=== PATIENT | male | born 1950 | race African-American/Black ===

== ENCOUNTER 2018-04-26 16:12 | Emergency (ER) | payer MEDICARE, MEDICAID ==
[2018-04-26] MEDS ORDERED: Acetaminophen 500 MG TAB ONE (17:00)
[2018-04-26] MEDS ORDERED: Acetaminophen 325 MG TAB ONE (17:24)
--- NOTE | 2018-04-26 17:25 | CT ---
CT HEAD WITHOUT CONTRAST: 04/26/18 Multiple axial tomograms obtained through the head without IV enhancement. INDICATIONS: Injury. Fall with injury to head. Comparison made to a CT head 07/16/2004. Ventriculomegaly is present. Ventriculomegaly was also present on the prior exam and does not show si gnificant change. The degree of ventriculomegaly appears slightly disproportionate to the atrophy pre sent which raises the possibility of NPH. There is no evidence of intracranial hemorrhage. No evidence of acute infarct or mass. Mucosal thickening in the paranasal sinuses is noted. Diffuse paranasal sinus mucosal opacification w as present on the prior exam. IMPRESSION: 1. No acute process or significant interval change. 2. There is mild ventriculomegaly as discussed above. POS: [facility]
--- NOTE | 2018-04-26 17:45 | RAD ---
RIGHT WRIST: 04/26/18 Three views. HISTORY: Fall with injury to right wrist. Carpals appear normally aligned. No evidence of fracture identified. There is narrowing of the radiocarpal joint and there appears to be some calcification of the triangu lar fibrocartilage indicating chronic change. IMPRESSION: No acute fracture identified. POS: [facility]
--- NOTE | 2018-04-26 17:47 | CT ---
CT CERVICAL SPINE: 04/26/18 Multiple axial tomograms obtained through the cervical spine with multiplanar reconstruction. INDICATIONS: Fall with injury to neck. Cervical vertebrae maintain normal height and alignment. Moderate to severe degenerative changes are noted. Hypertrophic changes are seen throughout the cervical spine. IMPRESSION: Degenerative changes of the cervical spine. No acute fracture identified. POS: [facility]
[2018-04-26] MEDS ORDERED: Bacitracin Zinc 1 Packet ONE (17:56)
== END 2018-04-26 18:14 | disposition home or self-care (01) ==
LOC: ERS 16:12
DX: S60.211A Contusion of right wrist, initial encounter (principal); S00.511A Abrasion of lip, initial encounter; S00.31XA Abrasion of nose, initial encounter; I10 Essential (primary) hypertension; W18.30XA Fall on same level, unspecified, initial encounter
CPT/HCPCS: 70450; 72125

== ENCOUNTER 2019-06-27 12:21 | Outpatient (CLI) | payer MEDICARE, MEDICAID ==
--- NOTE | 2019-06-27 12:57 | RAD ---
RADIOGRAPH CHEST 2 VIEW: DATE: 06/27/2019 TIME: 12:50 PM HISTORY: 69-year-old male with asthma and dyspnea. COMPARISON: 07/18/2004 FINDINGS: Images are degraded by patient breathing motion, especially lateral view. Patient unable to follow br eath-hold instructions. No finding of cardiomegaly. New finding of prominence of pulmonary vasculature. Prominent interstitial markings. Questionable tiny bilateral pleural effusions. No conso lidation or pneumothorax. IMPRESSION: Cardiomegaly and pulmonary venous congestion.
== END 2019-06-27 12:22 | disposition home or self-care (01) ==
LOC: BICRAD 12:21
PROVIDERS: ATTEND Family Medicine
DX: J45.909 Unspecified asthma, uncomplicated (principal); I51.7 Cardiomegaly; I87.8 Other specified disorders of veins
CPT/HCPCS: 71046

== ENCOUNTER 2022-06-05 14:08 | Inpatient (IN) | payer MEDICARE, MEDICAID ==
[2022-06-05 17:01] VITALS: BMI 24.5
[2022-06-05] MEDS ORDERED: Acetaminophen 325 MG TAB PO PRN (17:01)
[2022-06-05] MEDS ORDERED: Ondansetron PF 4 MG/2 ML Vial IVP PRN (17:01)
[2022-06-05] MEDS ORDERED: diphenhydrAMINE 25 MG CAP PO PRN (17:21)
[2022-06-05] MEDS ORDERED: Milk Of Magnesia 30 ML UDCUP PO PRN (17:26)
[2022-06-05] MEDS ORDERED: Polyethylene Glycol 3350 17 GM Packet PO PRN (17:26)
[2022-06-05] MEDS ORDERED: Albuterol 200 PUFF (6.7GM INHALER) INH PRN (17:36)
[2022-06-05 19:11] LABS: Troponin I 0.122 ng/mL (< 0.028)
[2022-06-05] MEDS: OXcarbazepine 300 MG TAB PO SCH (20:16)
[2022-06-05] MEDS: Montelukast Sodium 10 mg Tablet PO SCH (20:16)
[2022-06-05] MEDS: Terazosin HCl 5 MG CAP PO SCH (20:16)
[2022-06-05] MEDS: guaiFENesin ER 600 MG TAB PO SCH (20:16)
[2022-06-05] MEDS: Chlorhexidine Gluconate 15 ML UDCUP SSP SCH (20:17)
[2022-06-06 04:21] LABS: #Eosinphils 0.2 thou/uL (0.0-0.7); #Monocytes 0.8 thou/uL (0.11-0.59); #Neutrophils 5.9 thou/uL (1.40-6.50); %Basophils 0.1 % (0.0-1.0); %Eosinophils 2.3 % (0.0-10.0); %Lymphocytes 12.5 % (21.0-51.0); %Neutrophils 75.1 % (42.0-75.0); Hemoglobin 13.1 g/dL (14.0-18.0); Mean Corpuscular HGB CONC 32.2 g/dL (32.0-36.0); Mean Corpuscular Hemoglobin 30.3 pg (27.0-31.0); Mean Corpuscular Volume 94.3 fL (78.0-98.0); Mean Platelet Volume 9.2 fL (7.4-10.4); Platelet Count 149 thou/uL (130-400); Red Blood Cell (RBC) Count 4.33 mill/uL (4.70-6.10); White Blood Cell (WBC) Count 7.9 thou/uL (4.8-10.8)
[2022-06-06 04:33] LABS: Anion Gap 13 mmol/L (10-20); BUN (Urea Nitrogen) 19 mg/dL (8.4-25.7); Calc. Creatinine Clearance 71 mL/min (70-130); Calcium 8.1 mg/dL (7.8-10.44); Carbon Dioxide 27 mmol/L (23-31); Chloride 100 mmol/L (98-107); Estimated GFR 93; Glucose 111 mg/dL (83-110); Potassium 3.7 mmol/L (3.5-5.1); Sodium 136 mmol/L (136-145)
[2022-06-06] MEDS: Furosemide 20 MG/2 ML VIAL SLOW IVP SCH ×2 (05:36→15:47)
[2022-06-06] MEDS ORDERED: Furosemide 40 MG/4 ML VIAL SLOW IVP SCH (06:00)
[2022-06-06] MEDS: guaiFENesin ER 600 MG TAB PO SCH ×2 (09:31→20:56)
[2022-06-06] MEDS: Carvedilol 6.25 MG TAB PO SCH ×2 (09:31→15:48)
[2022-06-06] MEDS: Lisinopril 20 MG TAB PO SCH (09:31)
[2022-06-06] MEDS: Chlorhexidine Gluconate 15 ML UDCUP SSP SCH ×2 (09:32→20:56)
[2022-06-06] MEDS: Fluticasone Propionate Nasal Spray 16 gm Bottle NASAL SCH (09:32)
[2022-06-06] MEDS: Enoxaparin Sodium 40 MG/0.4 ML SYRINGE SC SCH (09:32)
[2022-06-06] MEDS: OXcarbazepine 300 MG TAB PO SCH ×2 (12:16→20:57)
[2022-06-06] MEDS: Terazosin HCl 5 MG CAP PO SCH (20:56)
[2022-06-06] MEDS: Montelukast Sodium 10 mg Tablet PO SCH (20:56)
[2022-06-07 04:51] LABS: Troponin I 0.114 ng/mL (< 0.028)
[2022-06-07] MEDS ORDERED: Furosemide 20 MG TAB PO SCH (09:00)
[2022-06-07] MEDS ORDERED: Azithromycin 250 MG TAB PO SCH (09:00)
[2022-06-07] MEDS: OXcarbazepine 300 MG TAB PO SCH (09:31)
[2022-06-07] MEDS: Enoxaparin Sodium 40 MG/0.4 ML SYRINGE SC SCH (09:31)
[2022-06-07] MEDS: guaiFENesin ER 600 MG TAB PO SCH (09:32)
[2022-06-07] MEDS: Lisinopril 20 MG TAB PO SCH (09:32)
[2022-06-07] MEDS: Fluticasone Propionate Nasal Spray 16 gm Bottle NASAL SCH (09:33)
[2022-06-07] MEDS: Carvedilol 6.25 MG TAB PO SCH (09:33)
[2022-06-07] MEDS: Chlorhexidine Gluconate 15 ML UDCUP SSP SCH (09:37)
[2022-06-07 11:30] VITALS: TEMP 97.5
[2022-06-07 12:45] VITALS: BP 159/75
== END 2022-06-07 13:20 | disposition home or self-care (01) | DRG 280 ==
LOC: 2NO 14:08
PROVIDERS: ADMIT Internal Medicine; ATTEND Internal Medicine
DX: I11.0 Hypertensive heart disease with heart failure (principal); I50.23 Acute on chronic systolic (congestive) heart failure; I21.A1 Myocardial infarction type 2; G40.909 Epilepsy, unspecified, not intractable, without status epilepticus; J45.20 Mild intermittent asthma, uncomplicated; G47.33 Obstructive sleep apnea (adult) (pediatric); Z79.51 Long term (current) use of inhaled steroids; Z79.899 Other long term (current) drug therapy
CPT/HCPCS: 36415; 80048; 84484; 85025; 93798; J1650; J1940

== ENCOUNTER 2022-10-28 16:21 | Inpatient (IN) | payer MEDICARE, MEDICAID ==
[2022-10-28 17:06] VITALS: BMI 18.9
[2022-10-28] MEDS ORDERED: Senokot S 8.6-50 MG TAB PO PRN (17:25)
[2022-10-28] MEDS ORDERED: Acetaminophen 325 MG TAB PO PRN (17:25)
[2022-10-28] MEDS ORDERED: Ipratropium/Albuterol 3 ML NEB NEB PRN (18:13)
[2022-10-28] MEDS ORDERED: FLU VACC QS2022-23(65YR UP)/PF 240 MCG/0.7 ML SYRINGE IM ONE (18:15)
[2022-10-29 05:00] LABS: #Eosinphils 0.3 thou/uL (0.0-0.7); #Lymphocytes 0.9 thou/uL (1.20-3.40); #Monocytes 0.7 thou/uL (0.11-0.59); #Neutrophils 3.7 thou/uL (1.40-6.50); %Basophils 0.1 % (0.0-1.0); %Eosinophils 5.2 % (0.0-10.0); %Lymphocytes 16.3 % (21.0-51.0); %Monocytes 12.5 % (0.0-10.0); Hemoglobin 12.9 g/dL (14.0-18.0); Mean Corpuscular HGB CONC 32.6 g/dL (32.0-36.0); Mean Corpuscular Hemoglobin 32.1 pg (27.0-31.0); Mean Corpuscular Volume 98.4 fl (78.0-98.0); Mean Platelet Volume 9.7 fL (7.4-10.4); Platelet Count 140 10x3/uL (130-400); RBC Distribution Width 13.9 % (11.5-14.5); Red Blood Cell (RBC) Count 4.01 mill/uL (4.70-6.10); White Blood Cell (WBC) Count 5.6 10x3/uL (4.8-10.8)
[2022-10-29 05:27] LABS: Anion Gap 14 mmol/L (10-20); BUN (Urea Nitrogen) 14 mg/dL (8.4-25.7); Calc. Creatinine Clearance 62 mL/min (70-130); Calcium 8.1 mg/dL (7.8-10.44); Carbon Dioxide 24 mmol/L (23-31); Chloride 106 mmol/L (98-107); Estimated GFR 97; Glucose 84 mg/dL (83-110); Potassium 3.6 mmol/L (3.5-5.1); Sodium 140 mmol/L (136-145)
[2022-10-29] MEDS: Furosemide 20 MG/2 ML VIAL SLOW IVP SCH ×2 (06:01→16:20)
[2022-10-29] MEDS: OXcarbazepine 300 MG TAB PO SCH ×2 (10:53→16:20)
[2022-10-29 12:15] LABS: Troponin I 0.124 ng/mL (< 0.028)
[2022-10-29] MEDS ORDERED: Milk Of Magnesia 30 ML UDCUP PO PRN (12:55)
[2022-10-29] MEDS ORDERED: guaiFENesin ER 600 MG TAB PO PRN (12:55)
[2022-10-29] MEDS: cefTRIAXone\\ROCEPHIN 1 GM in Sodium Chloride 0.9% 100 ML IVPB SCH (16:20)
[2022-10-29 17:18] LABS: Bacteria/HPF None Seen HPF (None Seen); Bilirubin Negative (Negative); Blood, Urine Negative (Negative); CAUTI Indications for Culture Alt mental st,lethar; Clarity Clear (Clear); Glucose, Urine (Dipstick) Normal (Negative); Ketone, Urine Negative (Negative); Leukocyte Negative Leu/uL (Negative); Nitrite Negative (Negative); Protein, Urine (Dipstick) Negative (Neg-Trace); RBC/HPF None Seen HPF (0-3); Specific Gravity, Urine 1.015 (1.002-1.036); Squamous Epithelial None Seen HPF (0-3); WBC/HPF 0-3 HPF (0-3)
[2022-10-29 17:20] LABS: Urine Culture Reflex No No
[2022-10-29] MEDS: Terazosin HCl 5 MG CAP PO SCH (22:39)
[2022-10-30 05:04] LABS: #Eosinphils 0.4 thou/uL (0.0-0.7); #Lymphocytes 0.9 thou/uL (1.20-3.40); #Monocytes 0.3 thou/uL (0.11-0.59); #Neutrophils 1.5 thou/uL (1.40-6.50); %Basophils 0.8 % (0.0-1.0); %Eosinophils 13.6 % (0.0-10.0); %Lymphocytes 28.4 % (21.0-51.0); %Monocytes 10.2 % (0.0-10.0); %Neutrophils 46.9 % (42.0-75.0); Hemoglobin 12.6 g/dL (14.0-18.0); Mean Corpuscular HGB CONC 33.8 g/dL (32.0-36.0); Mean Corpuscular Hemoglobin 32.5 pg (27.0-31.0); Mean Corpuscular Volume 96.2 fl (78.0-98.0); Mean Platelet Volume 9.2 fL (7.4-10.4); Platelet Count 140 10x3/uL (130-400); RBC Distribution Width 13.7 % (11.5-14.5); Red Blood Cell (RBC) Count 3.86 mill/uL (4.70-6.10); White Blood Cell (WBC) Count 3.3 10x3/uL (4.8-10.8)
[2022-10-30 05:35] LABS: ALT (SGPT) Less than 7 U/L (8-55); AST (SGOT) 10 U/L (5-34); Albumin 2.8 g/dL (3.4-4.8); Alkaline Phosphatase 57 U/L (40-110); Anion Gap 10 mmol/L (10-20); BUN (Urea Nitrogen) 12 mg/dL (8.4-25.7); Bilirubin, Total 0.9 mg/dL (0.2-1.2); Calc. Creatinine Clearance 63 mL/min (70-130); Carbon Dioxide 30 mmol/L (23-31); Chloride 106 mmol/L (98-107); Estimated GFR 98; Globulin 3.1 g/dL (2.4-3.5); Glucose 82 mg/dL (83-110); Magnesium 1.8 mg/dL (1.6-2.6); Phosphorus 2.7 mg/dL (2.3-4.7); Potassium 3.2 mmol/L (3.5-5.1); Protein, Total 5.9 g/dL (5.8-8.1); Sodium 143 mmol/L (136-145)
[2022-10-30] MEDS: Furosemide 20 MG/2 ML VIAL SLOW IVP SCH ×2 (06:38→14:02)
[2022-10-30] MEDS ORDERED: Electrolyte Replacement Protocol 1 EACH FS SCH (07:33)
[2022-10-30] MEDS ORDERED: Magnesium 2 GM/50 ML(in water) 2 GM in Premix Bag 1 BAG IVPB SCH (07:45)
[2022-10-30] MEDS ORDERED: Potassium Chloride 20 MEQ TAB PO SCH (08:00)
[2022-10-30] MEDS: OXcarbazepine 300 MG TAB PO SCH ×2 (09:19→14:03)
[2022-10-30 13:39] LABS: Potassium 3.7 mmol/L (3.5-5.1)
[2022-10-30] MEDS: cefTRIAXone\\ROCEPHIN 1 GM in Sodium Chloride 0.9% 100 ML IVPB SCH (14:02)
[2022-10-30] MEDS: Fluticasone Propionate Nasal Spray 16 gm Bottle NASAL SCH (14:02)
[2022-10-30] MEDS: Terazosin HCl 5 MG CAP PO SCH (20:40)
[2022-10-31] MEDS: Furosemide 20 MG/2 ML VIAL SLOW IVP SCH ×2 (05:10→16:22)
[2022-10-31 05:22] LABS: #Eosinphils 0.7 thou/uL (0.0-0.7); #Monocytes 0.3 thou/uL (0.11-0.59); #Neutrophils 1.5 thou/uL (1.40-6.50); %Basophils 0.7 % (0.0-1.0); %Lymphocytes 28.7 % (21.0-51.0); %Monocytes 7.8 % (0.0-10.0); %Neutrophils 42.8 % (42.0-75.0); Hemoglobin 13.2 g/dL (14.0-18.0); Mean Corpuscular HGB CONC 34.5 g/dL (32.0-36.0); Mean Corpuscular Hemoglobin 32.9 pg (27.0-31.0); Mean Corpuscular Volume 95.3 fl (78.0-98.0); Mean Platelet Volume 9.1 fL (7.4-10.4); Platelet Count 164 10x3/uL (130-400); RBC Distribution Width 13.5 % (11.5-14.5); Red Blood Cell (RBC) Count 4.02 mill/uL (4.70-6.10); White Blood Cell (WBC) Count 3.4 10x3/uL (4.8-10.8)
[2022-10-31 05:41] LABS: Anion Gap 9 mmol/L (10-20); BUN (Urea Nitrogen) 12 mg/dL (8.4-25.7); Calc. Creatinine Clearance 62 mL/min (70-130); Calcium 8.3 mg/dL (7.8-10.44); Carbon Dioxide 30 mmol/L (23-31); Chloride 103 mmol/L (98-107); Estimated GFR 98; Glucose 97 mg/dL (83-110); Magnesium 2.2 mg/dL (1.6-2.6); Potassium 3.9 mmol/L (3.5-5.1); Sodium 138 mmol/L (136-145)
[2022-10-31] MEDS: OXcarbazepine 300 MG TAB PO SCH ×2 (09:49→16:22)
[2022-10-31] MEDS: Fluticasone Propionate Nasal Spray 16 gm Bottle NASAL SCH (09:49)
[2022-10-31] MEDS: cefTRIAXone\\ROCEPHIN 1 GM in Sodium Chloride 0.9% 100 ML IVPB SCH (16:22)
[2022-10-31] MEDS: Terazosin HCl 5 MG CAP PO SCH (20:27)
[2022-11-01 04:58] LABS: #Eosinphils 0.6 thou/uL (0.0-0.7); #Lymphocytes 0.8 thou/uL (1.20-3.40); #Monocytes 0.4 thou/uL (0.11-0.59); %Eosinophils 12.2 % (0.0-10.0); %Lymphocytes 17.6 % (21.0-51.0); %Neutrophils 62.2 % (42.0-75.0); Hemoglobin 13.7 g/dL (14.0-18.0); Mean Corpuscular HGB CONC 31.9 g/dL (32.0-36.0); Mean Corpuscular Hemoglobin 30.4 pg (27.0-31.0); Mean Corpuscular Volume 95.2 fl (78.0-98.0); Platelet Count 193 10x3/uL (130-400); RBC Distribution Width 13.6 % (11.5-14.5); Red Blood Cell (RBC) Count 4.51 mill/uL (4.70-6.10); White Blood Cell (WBC) Count 4.8 10x3/uL (4.8-10.8)
[2022-11-01 05:08] LABS: Anion Gap 11 mmol/L (10-20); BUN (Urea Nitrogen) 16 mg/dL (8.4-25.7); Calc. Creatinine Clearance 61 mL/min (70-130); Calcium 8.4 mg/dL (7.8-10.44); Carbon Dioxide 29 mmol/L (23-31); Chloride 100 mmol/L (98-107); Estimated GFR 98; Glucose 97 mg/dL (83-110); Potassium 4.3 mmol/L (3.5-5.1); Sodium 136 mmol/L (136-145)
[2022-11-01] MEDS: Furosemide 20 MG/2 ML VIAL SLOW IVP SCH ×2 (05:41→15:47)
[2022-11-01] MEDS: OXcarbazepine 300 MG TAB PO SCH ×2 (09:55→15:47)
[2022-11-01] MEDS: Fluticasone Propionate Nasal Spray 16 gm Bottle NASAL SCH (09:55)
[2022-11-01] MEDS: cefTRIAXone\\ROCEPHIN 1 GM in Sodium Chloride 0.9% 100 ML IVPB SCH (15:47)
[2022-11-01] MEDS: Terazosin HCl 5 MG CAP PO SCH (21:33)
[2022-11-02 04:56] LABS: #Eosinphils 0.5 thou/uL (0.0-0.7); #Monocytes 0.4 thou/uL (0.11-0.59); #Neutrophils 3.3 thou/uL (1.40-6.50); %Basophils 0.2 % (0.0-1.0); %Eosinophils 9.5 % (0.0-10.0); %Lymphocytes 18.2 % (21.0-51.0); %Monocytes 8.2 % (0.0-10.0); %Neutrophils 63.8 % (42.0-75.0); Hemoglobin 13.7 g/dL (14.0-18.0); Mean Corpuscular HGB CONC 32.5 g/dL (32.0-36.0); Mean Corpuscular Hemoglobin 30.8 pg (27.0-31.0); Mean Platelet Volume 8.7 fL (7.4-10.4); Platelet Count 197 10x3/uL (130-400); RBC Distribution Width 13.6 % (11.5-14.5); Red Blood Cell (RBC) Count 4.44 mill/uL (4.70-6.10); White Blood Cell (WBC) Count 5.2 10x3/uL (4.8-10.8)
[2022-11-02 05:21] LABS: Anion Gap 9 mmol/L (10-20); BUN (Urea Nitrogen) 16 mg/dL (8.4-25.7); Calc. Creatinine Clearance 60 mL/min (70-130); Calcium 8.5 mg/dL (7.8-10.44); Carbon Dioxide 28 mmol/L (23-31); Chloride 100 mmol/L (98-107); Estimated GFR 97; Glucose 103 mg/dL (83-110); Potassium 4.1 mmol/L (3.5-5.1); Sodium 133 mmol/L (136-145)
[2022-11-02] MEDS: OXcarbazepine 300 MG TAB PO SCH ×2 (08:51→16:15)
[2022-11-02] MEDS: Fluticasone Propionate Nasal Spray 16 gm Bottle NASAL SCH (08:52)
[2022-11-02] MEDS ORDERED: Furosemide 20 MG/2 ML VIAL SLOW IVP SCH (09:00)
[2022-11-02] MEDS: cefTRIAXone\\ROCEPHIN 1 GM in Sodium Chloride 0.9% 100 ML IVPB SCH (13:37)
[2022-11-02 16:48] VITALS: BP 107/62; TEMP 97.2
== END 2022-11-02 18:49 | disposition swing bed (61) | DRG 291 ==
LOC: 2NO 16:21 → OBSVTOIN 10-31 13:31
PROVIDERS: ADMIT Internal Medicine; ATTEND Internal Medicine
DX: I11.0 Hypertensive heart disease with heart failure (principal); I50.23 Acute on chronic systolic (congestive) heart failure; Z20.822 Contact with and (suspected) exposure to COVID-19; G40.909 Epilepsy, unspecified, not intractable, without status epilepticus; G47.33 Obstructive sleep apnea (adult) (pediatric); J44.9 Chronic obstructive pulmonary disease, unspecified; H91.90 Unspecified hearing loss, unspecified ear; R62.50 Unspecified lack of expected normal physiological development in childhood; J45.20 Mild intermittent asthma, uncomplicated; N40.0 Benign prostatic hyperplasia without lower urinary tract symptoms; R77.8 Other specified abnormalities of plasma proteins; Z28.21 Immunization not carried out because of patient refusal; Z79.899 Other long term (current) drug therapy
CPT/HCPCS: 36415; 36416; 51701; 71250; 74177; 80048; 80053; 81001; 83735; 83880; 84100; 84145; 84484; 85025; 93306; 96372; 96374; 96375; 96376; G0378; J0696; J1650; J1940; J3475; J3490; U0003; U0005